=== PATIENT | female | born 1930 | race Caucasian/White ===

== ENCOUNTER 2017-07-04 13:05 | Emergency (ER) | payer OTHER, BC ==
[2017-07-04 13:24] VITALS: BP 108/49; PULSE 70; TEMP 98.2; BMI 24.2
--- NOTE | 2017-07-04 14:33 | PDOC ---
History of Present Illness - General History Source: Patient, Family - History of Present Illness Initial Comments: 07/04/17 14:36 History of Present Illness: 86 y/o F with a PMHx of bowel obstruction and basal cell carcinoma presents to the ED with non-productive cough one week. Patients daughter states that she gave her Mucinex which seemed to work at first. However, patient began to feel increasingly weak today. She also reports dysuria. She denies fever, chills, nausea, vomiting, diarrhea. Social Hx: non-smoker, occasional drinker Surgical Hx: left knee replacement, hernia repair PCP: Dr. Belle Mendoza Review of Systems: CONSTITUTIONAL: (+) weakness. Absent: fever, chills EYES: Absent: visual changes ENT: Absent: ear pain, sore throat CARDIOVASCULAR: Absent: chest pain, palpitations RESPIRATORY: (+) cough. Absent: SOB GI: Absent: abdominal pain, nausea, vomiting, constipation, diarrhea GENITOURINARY: Absent: dysuria, frequency, hematuria MUSCULOSKELETAL: Absent: back pain, arthralgia, myalgia SKIN: Absent: rash NEURO: Absent: headache Physical Exam: GENERAL: Well-appearing, well-nourished. No apparent distress. HEENT: Dry mucous membranes, otherwise clear ENT. PULMONARY: Clear with full breath sounds bilaterally, no wheezes, rales or rhonchi. No tachypnea or dyspnea. ABDOMEN: Soft, non-distended, non-tender. No masses or organomegaly. SKIN: Signs of intertrigo in inguinal creases and around the umbilicus without sign of super infection. Otherwise normal exam. <Dorothea Cullen - Last Filed: 07/04/17 15:25> <Jj Rapp - Last Filed: 07/04/17 16:01> - General Chief Complaint: Respiratory Stated Complaint: COLD COUGH WEAK BURNING ON URINATION Time Seen by Provider: 07/04/17 14:18 Past History <Dorothea Cullen - Last Filed: 07/04/17 15:25> - Past Medical History Cardiac Disorders: Yes (STENOSIS) GI Disorders: Yes (BOWEL OBSTRUCTION) Other medical history: ARTHRITIS MACULAR DEGENERATION - Surgical History GI Surgery: Yes (BOWEL OBSTRUCTION) - Psycho/Social/Smoking Cessation Hx Anxiety: No Suicidal Ideation: No Smoking History: Never smoked Information on smoking cessation initiated: No Hx Alcohol Use: No Drug/Substance Use Hx: No Substance Use Type: None <Jj Rapp - Last Filed: 07/04/17 16:01> - Past Medical History Allergies/Adverse Reactions: Allergies Allergy/AdvReac Type Severity Reaction Status Date / Time shellfish derived Allergy Intermediate Verified 07/04/17 13:07 hay fever Allergy Uncoded 08/27/16 13:16 Home Medications: Ambulatory Orders Cholecalciferol (Vitamin D3) [Vitamin D3] 5,000 unit PO DAILY 07/04/17 Cyanocobalamin (Vitamin B-12) [Vitamin B12] 2,500 mcg PO DAILY 07/04/17 Docusate Sodium [Colace -] 100 mg PO DAILY 07/04/17 Econazole Nitrate 1% [Spectazole 1%] 1 applic TP BID #1 tube 07/04/17 Vit C/E/Zn/Coppr/Lutein/Zeaxan [Preservision Areds 2 Softgel] 1 cap PO DAILY *Physical Exam - Vital Signs Last Vital Signs Temp Pulse Resp BP Pulse Ox 98.2 F 70 20 108/49 96 07/04/17 13:07 07/04/17 13:07 07/04/17 13:07 07/04/17 13:07 07/04/17 13:07 <Dorothea Cullen - Last Filed: 07/04/17 15:25> - Vital Signs Last Vital Signs Temp Pulse Resp BP Pulse Ox 98.2 F 70 20 108/49 96 07/04/17 13:07 07/04/17 13:07 07/04/17 13:07 07/04/17 13:07 07/04/17 13:07 <Jj Rapp - Last Filed: 07/04/17 16:01> ED Treatment Course - RADIOLOGY Radiograph Interpretation: 07/04/17 15:25 Chest X-Ray Reported by Dr. Garland Root Impression: Cardiomegaly, no acute pathology or significant change since 2015. <Dorothea Cullen - Last Filed: 07/04/17 15:25> - RADIOLOGY Radiology Studies Ordered: Category Date Time Status CHEST PA & LAT [RAD] Stat Radiology 07/04/17 13:39 Taken <Jj Rapp - Last Filed: 07/04/17 16:01> Medical Decision Making - Medical Decision Making 07/04/17 14:31 86-year-old female otherwise healthy on no medications right in by her daughters for nonproductive cough. Has had cough for about one week, taking Mucinex, seemed to be improving. However today has felt increasingly weak and has dysuria. Lungs are clear, chest x-ray shows no sign of pneumonia, there is no dyspnea, tachypnea, or other respiratory distress, respiratory rate is 18 and oxygen saturation is 96%. 07/04/17 15:52 Chest x-ray reveals mild cardiomegaly but no sign of pneumonia, acute infiltrates, or changes from prior film. Urinalysis is clear except for 2+ blood. A vaginal exam shows no evidence of yeast infection or other vaginitis despite intertrigo in the inguinal folds and around the umbilicus. A urine culture is pending The patient appears to be well, although complaining of mild generalized weakness and fatigue she does not appear to be weak and is ambulating well. This may be the residual of a viral upper respiratory illness. Advised to continue Mucinex. Urine culture pending as noted above. Nutrition and hydration as discussed with her daughter. Follow-up with primary physician if symptoms do not improve or worsen in 2-3 days. Patient adequately ambulatory and in no significant pain or other distress upon discharge with her daughter to follow- up as directed. 07/04/17 16:01 <Jj Rapp - Last Filed: 07/04/17 16:01> *DC/Admit/Observation/Transfer - Attestations Scribe Attestion: 07/04/17 14:41 Documentation prepared by Dorothea Cullen, acting as medical officer psychiatry for Jj Esposito MD. <Dorothea Cullen - Last Filed: 07/04/17 15:25> - Discharge Dispostion Admit: No <Jj Rapp - Last Filed: 07/04/17 16:01> Diagnosis at time of Disposition: Viral syndrome, Intertrigo - Discharge Dispostion Disposition: HOME Condition at time of disposition: Stable - Prescriptions Prescriptions: Econazole Nitrate 1% [Spectazole 1%] 1 applic TP BID #1 tube - Patient Instructions Printed Discharge Instructions: DI for Chronic Bronchitis
[2017-07-04 15:26] LABS: URINE APPEARANCE Cloudy; URINE BILIRUBIN Negative (NEGATIVE); URINE BLOOD 2+ (NEGATIVE); URINE COLOR YELLOW; URINE GLUCOSE (UA) Negative (NEGATIVE); URINE KETONE Negative (NEGATIVE); URINE LEUK ESTERASE 3+ (NEGATIVE); URINE NITRITE Negative (NEGATIVE); URINE PROTEIN Negative (NEGATIVE); URINE UROBILINOGEN 0.2 (0.2-1.0)
[2017-07-04 15:58] LABS: URINE BACTERIA MANY /hpf (NEGATIVE); URINE WBC 20-30 (3-5)
== END 2017-07-04 16:16 | disposition home or self-care (01) ==
LOC: FER 13:05
DX: B34.9 Viral infection, unspecified (principal); L01.00 Impetigo, unspecified; Z85.828 Personal history of other malignant neoplasm of skin; Z91.013 Allergy to seafood
CPT/HCPCS: 71020-TC; 81003; 81015; 87086; 87186; 99282-25

== ENCOUNTER 2017-11-20 20:21 | Emergency (ER) | payer OTHER, BC ==
--- NOTE | 2017-11-20 20:35 | PDOC ---
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 Patient states that she lost her balance and fell at home earlier today. She states she called an ambulance and is complaining of right-sided pain. Social Hx: non-smoker, occasional drinker Surgical Hx: left knee replacement, hernia repair PCP: Dr. Belle Mendoza <Estephanie Bowling - Last Filed: 11/20/17 21:02> <Henrry Guy - Last Filed: 11/21/17 06:39> - General Chief Complaint: Pain Stated Complaint: PAIN RIGHT SIDE S/P FALL Time Seen by Provider: 11/20/17 20:35 Past History <Estephanie Bowling - Last Filed: 11/20/17 21:02> - Past Medical History Cardiac Disorders: Yes (STENOSIS) GI Disorders: Yes (BOWEL OBSTRUCTION) - Surgical History GI Surgery: Yes (BOWEL OBSTRUCTION) - Suicide/Smoking/Psychosocial Hx Smoking History: Never smoked Hx Alcohol Use: No Drug/Substance Use Hx: No Substance Use Type: None <Henrry Guy - Last Filed: 11/21/17 06:39> - Past Medical History Allergies/Adverse Reactions: Allergies Allergy/AdvReac Type Severity Reaction Status Date / Time shellfish derived Allergy Intermediate Verified 11/20/17 20:23 hay fever Allergy Uncoded 08/27/16 13:16 Home Medications: Ambulatory Orders Cholecalciferol (Vitamin D3) [Vitamin D3] 5,000 unit PO DAILY 07/04/17 Cyanocobalamin (Vitamin B-12) [Vitamin B12] 2,500 mcg PO DAILY 07/04/17 Docusate Sodium [Colace -] 100 mg PO PRN 07/04/17 Vit C/E/Zn/Coppr/Lutein/Zeaxan [Preservision Areds 2 Softgel] 1 cap PO DAILY Lidocaine 5% Patch [Lidoderm -] 1 patch TP DAILY PRN #30 patch 11/20/17 Review of Systems - Review of Systems Comments:: 11/20/17 21:02 GENERAL/CONSTITUTIONAL: No fever or chills. No weakness. HEAD, EYES, EARS, NOSE AND THROAT: No change in vision. No ear pain or discharge. No sore throat. GASTROINTESTINAL: No nausea, vomiting, diarrhea or constipation. GENITOURINARY: No dysuria, frequency, or change in urination. CARDIOVASCULAR: No chest pain or shortness of breath. RESPIRATORY: No cough, wheezing, or hemoptysis. MUSCULOSKELETAL: +right sided pain. No neck or back pain. SKIN: No rash NEUROLOGIC: No headache, vertigo, loss of consciousness, or change in strength/ sensation. ENDOCRINE: No increased thirst. No abnormal weight change. HEMATOLOGIC/LYMPHATIC: No anemia, easy bleeding, or history of blood clots. ALLERGIC/IMMUNOLOGIC: No hives or skin allergy. <Estephanie Bowling - Last Filed: 11/20/17 21:02> *Physical Exam - Vital Signs Last Vital Signs Temp Pulse Resp BP Pulse Ox 98.1 F 82 18 101/53 100 11/20/17 20:22 11/20/17 20:22 11/20/17 20:22 11/20/17 20:22 11/20/17 20:22 - Physical Exam Comments: 11/20/17 21:03 GENERAL: Awake, alert, and fully oriented, in no acute distress HEAD: No signs of trauma EYES: PERRLA, EOMI, sclera anicteric, conjunctiva clear ENT: Auricles normal inspection, hearing grossly normal, nares patent, oropharynx clear without exudates. Moist mucosa NECK: Normal ROM, supple, no lymphadenopathy, JVD, or masses LUNGS: Breath sounds equal, clear to auscultation bilaterally. No wheezes, and no crackles HEART: Regular rate and rhythm, normal S1 and S2, no murmurs, rubs or gallops ABDOMEN: Soft, nontender, normoactive bowel sounds. No guarding, no rebound. No masses. Posterior pelvic tenderness. EXTREMITIES: Normal range of motion, no edema. No clubbing or cyanosis. No cords, erythema, or tenderness NEUROLOGICAL: Cranial nerves II through XII grossly intact. Normal speech, normal gait SKIN: Warm, Dry, normal turgor, no rashes or lesions noted. <Estephanie Bowling - Last Filed: 11/20/17 21:02> Medical Decision Making - Medical Decision Making 11/21/17 06:39 msk pain s/p lost balance analgesia <Henrry Guy - Last Filed: 11/21/17 06:39> *DC/Admit/Observation/Transfer - Attestations Scribe Attestion: 11/20/17 21:04 Documentation prepared by Estephanie Bowling, acting as biomedical field service engineer for Henrry Guy MD. <Estephanie Bowling - Last Filed: 11/20/17 21:02> <Henrry Guy - Last Filed: 11/21/17 06:39> Diagnosis at time of Disposition: Multiple contusions - Discharge Dispostion Disposition: HOME Condition at time of disposition: Stable - Prescriptions Prescriptions: Lidocaine 5% Patch [Lidoderm -] 1 patch TP DAILY PRN #30 patch PRN Reason: Pain
[2017-11-20 20:46] VITALS: BP 101/53; PULSE 82; TEMP 98.1; BMI 21.0
[2017-11-20] MEDS ORDERED: IBUPROFEN 400 MG TABLET (FP) PO ONE ×2 (22:12)
== END 2017-11-20 22:16 | disposition home or self-care (01) ==
LOC: FER 20:21
DX: T14.8XXA Other injury of unspecified body region, initial encounter (principal); W18.39XA Other fall on same level, initial encounter; Y93.89 Activity, other specified; Y92.9 Unspecified place or not applicable; Z85.828 Personal history of other malignant neoplasm of skin; H35.30 Unspecified macular degeneration; I35.0 Nonrheumatic aortic (valve) stenosis
CPT/HCPCS: 72100-TC; 72170-TC; 99282-25